=== PATIENT | male | born 1990 | race Caucasian/White ===

== ENCOUNTER 2019-05-31 16:03 | Emergency (ER) | payer MEDICAID, SELFPAY ==
[2019-05-31 16:04] VITALS: BP 160/104; PULSE 92; RESP 16; TEMP 36.5; O2SAT 99; BMI 47.2
[2019-05-31 16:47] LABS: Absolute Lymphocyte Count 1.89 X10^3/uL (0.83-4.51); Absolute Neutrophil Count 8.2 X10^3/uL (2.0-7.7); Basophil# 0.04 X10^3/uL; Basophil% 0.4 % (0-1); Eosinophil# 0.24 X10^3/uL; Eosinophils% 2.1 % (0-5); Hematocrit 44.9 % (40-54); Hemoglobin 14.9 g/dL (13.0-16.5); Lymphocyte # 1.89 X10^3/ul (4.0); Lymphocyte % 16.6 % (19-41); Mean Corp Hgb Conc 33.2 g/dL (32-36); Mean Corpuscular Hgb 27.5 pg (27.0-32.0); Mean Platelet Vol. 9.9 fl (6.2-12.0); Monocyte# 0.97 X10^3/uL; Monocyte% 8.5 % (0-10); NRBC Flagged by Analyzer 0 % (0-5); Neutrophil # 8.18 X10^3/uL (2.7-7.7); Neutrophil % 71.8 % (47-70); Platelet Count 254 K/mm3 (150-450); RBC Distribution Width CV 12.4 % (11.6-14.6); RBC Distribution Width SD 37.7 fl (35.1-43.9); Red Blood Count 5.41 M/mm3 (4.6-6.2); White Blood Count 11.4 K/mm3 (4.4-11.0)
[2019-05-31] MEDS: 0.9% Normal Saline 1,000 ML 1000 ML IV (17:00)
[2019-05-31] MEDS: Ondansetron 4 MG/2 ML Vial IV (17:01)
[2019-05-31] MEDS: Dicyclomine 20 MG/2 ML Vial IM (17:01)
[2019-05-31 17:06] LABS: ALB/GLOB Ratio 1.2 RATIO (0.9-2.4); AST(SGOT) 20 U/L (15-37); Alanine Aminotransfer ALT/SGPT 54 U/L (16-61); Alkaline Phosphatase 62 U/L (45-117); Anion Gap 5 (5-15); BUN 8 mg/dL (7-18); BUN/Creat Ratio 9.2 RATIO (10-20); Calcium,Total 8.5 mg/dL (8.5-10.1); Chloride 109 mmol/L (98-107); Creatinine, Serum 0.87 mg/dL (0.70-1.30); EST Glomerular Filtration Rate 109 mL/min (>60); Est Glom Filt Rate - Afr Amer 132 mL/min (>60); Globulin 3.4 g/dL (2.2-4.2); Glucose 94 mg/dL (74-106); Potassium 3.5 mmol/L (3.5-5.1); Protein, Total 7.4 g/dL (6.4-8.2); Sodium Level 141 mmol/L (136-145)
--- NOTE | 2019-05-31 20:18 | ED.DCSUM_ITS ---
- ER Visit Summary Date of Service: 05/31/19 Chief Complaint: [Diarrhea] History of Present Illness: The patient is a 29 M [resents to the emergency room with complaint of diarrhea and abdominal cramping as well as headache that started 2 days ago. Patient states that he has been on doxycycline for 5 days now and prior to that he was on Levaquin for 10 days for cellulitis to his right lower extremity. Patient states that the redness and swelling of the right lower extremities are completely resolved at this time. He denies any fevers. He denies eating any undercooked foods. He denies any recent travel. Patient denies any blood in his stool. No family history of Crohn's or ulcerative colitis. Patient has had prior appendectomy.] Physical Examination: [HEENT-PERRLA, EOMI. Cranial nerves II through XII grossly intact. TMs clear. Mucous membranes moist. No adenopathy. Cardiovascular-regular rate and rhythm without murmur or ectopy Lungs-clear to auscultation, chest wall stable without crepitus or subcu emphysema Abdomen-normoactive bowel sounds, soft. Patient has mild diffuse tenderness on palpation. There is no rebound, rigidity, or perineal signs. Extremities-intact ?4, normal range of motion, normal pulses, atraumatic] Test Results: [CBC with differential obtained showed a white count of 11.4, hemoglobin 14.9, platelets 259. Chemistries unremarkable. LFTs were normal. C. difficile was negative. Enteric pathogens ordered and pending.] Emergency Department Course and Treatment: [He was given a liter normal same fluid bolus and given Zofran 4 mg IV. Patient was given Bentyl 10 mg IM.] Treatment Plan: [Patient will be given a prescription for Bentyl and Zofran for home. Patient advised to push fluids. Patient to follow-up with his primary care physician within next 3 to 5 days. Patient advised to return if worsening pain, fever, vomiting, dehydration, or conditions worsen anyway.] Disposition: [Discharged home in stable condition] Impression: [Gastroenteritis-report pending] This note was generated with [employer] software. It may contain incorrect words, spelling, and punctuation that were not noted in review of the chart prior to signing ED Disposition - Plan for ED Patient: Referrals: Elan Burks MD [Primary Care Provider] -
--- NOTE | 2019-05-31 20:21 | ED.DEP ---
ED Disposition - Plan for ED Patient: Instructions: GASTROENTERITIS, Viral (5y-Adult), DIARRHEA, Unk Cause (Adult) Report Pendg Prescriptions: Dicyclomine HCl [Bentyl] 20 mg PO TIDAC #20 cap Prescription Printed Ondansetron [Zofran Odt] 4 mg PO Q8H PRN PRN #10 tab PRN Reason: Nausea Prescription Printed Referrals: Elan Burks MD [Primary Care Provider] - 3-5 Days
[2019-05-31 20:34] VITALS: BP 140/78; PULSE 82; RESP 16; O2SAT 100
== END 2019-05-31 20:35 | disposition home or self-care (01) ==
LOC: ED 16:57
PROVIDERS: Emergency Provider Emergency Medicine; Family Provider Family Medicine; PCP Family Medicine
DX: K52.9 Noninfective gastroenteritis and colitis, unspecified (principal)
CPT/HCPCS: 80053; 85025; 87493; 87506; 96361; 96372; 96374; 99284; J7030; A4216; J2405

== ENCOUNTER 2019-09-27 20:04 | Emergency (ER) | payer OTHER, SELFPAY ==
[2019-09-27 20:05] VITALS: BP 163/96; PULSE 81; PULSE 85; RESP 16; RESP 17; TEMP 36.7; O2SAT 97; O2SAT 98; BMI 50.3
--- NOTE | 2019-09-27 20:34 | EKG12_ITS ---
Test Reason : CP Blood Pressure : / mmHG Vent. Rate : 088 BPM Atrial Rate : 088 BPM P-R Int : 146 ms QRS Dur : 090 ms QT Int : 352 ms P-R-T Axes : 048 034 054 degrees QTc Int : 425 ms Normal sinus rhythm Normal ECG Confirmed by AMAYA DAVIS, HERNANDO ([id number]), web editor EBEN CARMICHAEL ([id number]) on 09/29/2019 11:30:37 AM Referred By: Confirmed By:HERNANDO CONDE MD
--- NOTE | 2019-09-27 20:34 | RAD_ITS ---
STUDY: X-RAY CHEST REASON FOR EXAM: Male, 29 years old. Chest pain TECHNIQUE: Single frontal view of the chest. COMPARISON: None. FINDINGS: Cardiac silhouette unremarkable. Pulmonary vascularity unremarkable. Aorta unremarkable. No focal airspace opacities. No pleural effusions. Upper abdomen unremarkable. Osseous structures intact. No pneumothorax. RAD/Chest 1 View (Portable) IMPRESSION: No acute cardiopulmonary findings Electronically Signed: Wolfgang Ricardo, at 21:53 EST Tel , Service support ,
[2019-09-27 21:07] LABS: Absolute Lymphocyte Count 3.04 X10^3/uL (0.83-4.51); Absolute Neutrophil Count 7.6 X10^3/uL (2.0-7.7); Basophil# 0.03 X10^3/uL; Basophil% 0.3 % (0-1); Eosinophil# 0.24 X10^3/uL; Hematocrit 46.1 % (40-54); Hemoglobin 14.8 g/dL (13.0-16.5); Lymphocyte # 3.04 X10^3/ul (4.0); Lymphocyte % 25.5 % (19-41); Mean Corp Hgb Conc 32.1 g/dL (32-36); Mean Corpuscular Hgb 26.5 pg (27.0-32.0); Mean Corpuscular Volume 82.6 fL (80-94); Mean Platelet Vol. 10.5 fl (6.2-12.0); Monocyte# 0.96 X10^3/uL; Monocyte% 8.1 % (0-10); NRBC Flagged by Analyzer 0 % (0-5); Neutrophil # 7.56 X10^3/uL (2.7-7.7); Neutrophil % 63.3 % (47-70); Platelet Count 295 K/mm3 (150-450); RBC Distribution Width CV 12.8 % (11.6-14.6); RBC Distribution Width SD 38.4 fl (35.1-43.9); Red Blood Count 5.58 M/mm3 (4.6-6.2); White Blood Count 11.9 K/mm3 (4.4-11.0)
[2019-09-27 21:22] LABS: Anion Gap 5 (5-15); BUN 13 mg/dL (7-18); BUN/Creat Ratio 13.8 RATIO (10-20); Calcium,Total 9.3 mg/dL (8.5-10.1); Chloride 110 mmol/L (98-107); Creatinine, Serum 0.94 mg/dL (0.70-1.30); EST Glomerular Filtration Rate 100 mL/min (>60); Est Glom Filt Rate - Afr Amer 121 mL/min (>60); Estimated Creatinine Clearance 148.55 ml/min; Glucose 148 mg/dL (74-106); Potassium 3.9 mmol/L (3.5-5.1); Sodium Level 143 mmol/L (136-145)
[2019-09-27 22:22] VITALS: BP 140/94; PULSE 76; RESP 17; O2SAT 97
[2019-09-27 23:17] VITALS: BP 146/86; PULSE 74; RESP 19; O2SAT 96
--- NOTE | 2019-09-27 23:28 | ED.VISSUMM ---
- ER Visit Summary Date of Service: 09/27/19 Chief Complaint: Chest pain History of Present Illness: The patient is a 29 M presenting with chest pain. Patient states this started at 6:30 PM, 2 hours prior to arrival. He has been having intermittent episodes of chest pain over the past 1 month. He states he gets this chest pain approximately 2-3 times per week. He states he has been under a lot of stress with his job and attributes the pain to the stress. 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 He had associated shortness of breath, nausea, diaphoresis. He describes a midsternal chest pressure. He states his doctor has been following his blood pressure and it has been running high. He is not on blood pressure medications at this time. He has family history of heart disease over age 55. He is not a smoker. He denies PE/DVT risk factors. He is morbidly obese. Physical Examination: Vitals are stable. Blood pressure 163/96. Patient is afebrile. Alert no acute distress. HEENT exam is unremarkable. Neck is supple. Lungs are clear and equal bilaterally. Heart is regular rate and rhythm. Abdomen is soft nontender nondistended. Extremities are unremarkable. Skin is warm and dry. No focal neurologic deficit. Remainder of exam is unremarkable. Emergency Department Course and Treatment: EKG is sinus rhythm rate of 88 with no acute ischemic changes. Chest x-ray shows no acute process. CBC, chemistries unremarkable other than glucose 148. Troponin is negative. Patient was given aspirin on arrival. On reevaluation, patient is chest pain-free. Due to his risk factors and history I recommend admission for stress test. I also discussed with his primary care physician on-call who agrees with admission. Patient does not want to stay in the hospital as he has to work tomorrow. He understands the risks including MT and . He agrees to delta troponin but will sign out AGAINST MEDICAL ADVICE if his delta troponin is negative. His family is at bedside. He states he will follow-up with his primary care physician. He is advised to return to the ED or call EMS if his symptoms worsen. Disposition: Left AGAINST MEDICAL ADVICE Impression: Chest pain This note was generated with [employer] dictation software. It may contain incorrect words, spelling, and punctuation that were not noted in review of the chart prior to signing ED Disposition - Plan for ED Patient: Instructions: CHEST PAIN, Uncertain Cause Referrals: Elan Burks MD [Primary Care Provider] -
--- NOTE | 2019-09-27 23:34 | ED.DEP ---
ED Disposition - Plan for ED Patient: Instructions: CHEST PAIN, Uncertain Cause Referrals: Elan Burks MD [Primary Care Provider] -
[2019-09-28 00:33] VITALS: BP 142/63; PULSE 70; RESP 18
== END 2019-09-28 00:35 | disposition left against medical advice (07) ==
LOC: ED 20:42
PROVIDERS: Emergency Provider Emergency Medicine; PCP Family Medicine
DX: R07.9 Chest pain, unspecified (principal); I10 Essential (primary) hypertension; Z82.49 Family history of ischemic heart disease and other diseases of the circulatory system; E66.01 Morbid (severe) obesity due to excess calories; Z68.43 Body mass index [BMI] 50.0-59.9, adult; Z53.29 Procedure and treatment not carried out because of patient's decision for other reasons
CPT/HCPCS: 36415; 71045; 80048; 84484; 85025; 93005; 99283; A4216

== ENCOUNTER → 2020-12-15 14:23 | Outpatient (CLI) | payer SELFPAY ==
[2020-12-07 15:15] VITALS: BMI 47.6
[2020-12-15 16:05] LABS: Thyroid Stim Hormone (TSH) 0.81 uIU/mL (0.358-3.74)
== END ==
PROVIDERS: PCP Family Medicine; Referring Provider Internal Medicine Cardiovascular Disease; Visit Provider Internal Medicine Cardiovascular Disease
DX: I48.91 Unspecified atrial fibrillation (principal)
CPT/HCPCS: 36415; 84443; 93225; 93226